=== PATIENT | male | born 1965 | race Caucasian/White ===

== ENCOUNTER → 2024-02-04 12:38 | Outpatient (REF) | payer BC, SELFPAY | LOC: RCS 12:38 | PROVIDERS: ATTENDING PHYSICIAN Internal Medicine; FAMILY PHYSICIAN Family Medicine | DX: R94.31 Abnormal electrocardiogram [ECG] [EKG] (principal); I10 Essential (primary) hypertension; R07.89 Other chest pain | CPT/HCPCS: 93017 ==

== ENCOUNTER → 2024-07-16 07:21 | Outpatient (REF) | payer BC, SELFPAY | LOC: MRI 3T 07:21 | PROVIDERS: ATTENDING PHYSICIAN Surgery; FAMILY PHYSICIAN Family Medicine | DX: K60.5 Anorectal fistula (principal) | CPT/HCPCS: 72197; A9575 ==